=== PATIENT | male | born 1955 | race Caucasian/White ===

== ENCOUNTER 2020-09-16 10:33 | Inpatient (IN) ==
[2020-09-16] MEDS ORDERED: Thiamine (B-1) 200 MG in 0.9 % Sodium Chloride 50 ML IVPB ONE (11:14)
[2020-09-16] MEDS ORDERED: Folic Acid 1 MG in 0.9 % Sodium Chloride 50 ML IVPB ONE (11:14)
[2020-09-16] MEDS ORDERED: 0.9 % Sodium Chloride 1,000 ML IVC ONE (11:14)
[2020-09-16] MEDS ORDERED: methylPREDNISolone 125 MG/2 ML VIAL IVP ONE (11:16)
[2020-09-16] MEDS ORDERED: Ipratropium/Albuterol Neb 3 ML IH ONE (11:16)
[2020-09-16 11:27] LABS: Basophils # 0.1 K/mcL (0.0-0.2); Basophils % 0.6 %; Eosinophils # 0.1 K/mcL (0.0-0.6); Eosinophils % 0.9 %; Hematocrit 33.2 % (37.5-50.1); Hemoglobin 11.4 g/dL (12.9-16.9); Immature Granulocytes % 0.8 % (0-4); Mean Corpuscular HGB Conc 34.3 g/dL (31.6-35.5); Mean Corpuscular Hemoglobin 33.7 pg (28.0-33.3); Mean Corpuscular Volume 98.2 fL (83.0-100.0); Mean Platelet Volume 9.9 fL (9.4-12.4); Monocytes # 0.8 K/mcL (0.0-1.3); Monocytes % 8.4 %; Neutrophils # 7.1 K/mcL (1.6-8.9); Platelet Count 157 K/mcL (140-400); Red Blood Count 3.38 M/mcL (4.19-5.50); Red Cell Distribution Width 12.8 % (11.5-14.5); Segmented Neutrophils % 78.3 %; White Blood Count 9.1 K/mcL (4.3-11.1)
[2020-09-16 11:50] LABS: Alanine Aminotransferase 18 Units/L (7-52); Albumin/Globulin Ratio 0.8 (1.1-2.2); Alkaline Phosphatase 106 Units/L (34-104); Aspartate Amino Transferase 39 Units/L (13-39); BUN/Creatinine Ratio 18 (6-26); Bilirubin,Indirect 1.5 mg/dL (0.0-1.0); Bilirubin,Total 2.5 mg/dL (0.3-1.0); Blood Urea Nitrogen 9 mg/dL (8-23); Calcium 8.1 mg/dL (8.6-10.3); Carbon Dioxide 28 mEq/L (23-29); Chloride 90 mEq/L (98-107); Ethanol < 10 mg/dL (Less than 10); Glucose 117 mg/dL (70-105); Osmolality,Calculated 258 (280-300); Potassium 2.8 mEq/L (3.5-5.1); Sodium 124 mEq/L (136-145); Troponin I 0.14 ng/mL (< 0.04); eGFR For African Americans > 60 (> 60); eGFR For Non-African Americans > 60 (> 60)
[2020-09-16] MEDS ORDERED: Magnesium Sulfate 1 GM/102 ML PIGGYBACK IVPB ONE (11:51)
[2020-09-16] MEDS ORDERED: Potassium Chloride 40 MEQ, Lidocaine 1% 2 ML in 0.9 % Sodium Chloride 500 ML IVPB ONE (11:51)
[2020-09-16 12:10] LABS: Thyroid Stimulating Hormone 2.886 mcIU/mL (0.340-5.600)
[2020-09-16 12:22] LABS: INR 1.3; Prothrombin Time 14.9 Seconds (9.4-12.1)
[2020-09-16 12:25] LABS: Activated Partial Thrombo Time 28.8 Seconds (26.0-36.0)
[2020-09-16] MEDS ORDERED: Isovue-370 500 ML BOTTLE IVP ONE (12:47)
[2020-09-16] MEDS ORDERED: Aspirin 81 MG TAB.CHEW PO STA (12:49)
[2020-09-16] MEDS ORDERED: Ondansetron ODT 4 MG TAB.RAPDIS SL PRN (15:11)
[2020-09-16] MEDS ORDERED: *HR* HYDROcodone/Acet 5/325 mg TABLET PO PRN (15:11)
[2020-09-16] MEDS ORDERED: Naloxone 0.4 MG/ML INJ IVP PRN (15:11)
[2020-09-16] MEDS ORDERED: *HR* LORazepam 2 MG/ML VIAL IVP PRN ×3 (15:25)
[2020-09-16] MEDS: Thiamine (B-1) 100 MG, Folic Acid 1 MG, MVI, adult with vitamin K 10 ML in 0.9 % Sodi... IVPB SCH (16:50)
[2020-09-16 17:37] LABS: INR 1.3; Prothrombin Time 14.8 Seconds (9.4-12.1)
[2020-09-16 17:39] LABS: Activated Partial Thrombo Time 28.7 Seconds (26.0-36.0)
[2020-09-16 17:45] LABS: Phosphorous 2.9 mg/dL (2.7-4.5)
[2020-09-16] MEDS: *HR* OxyCODONE Immed Rel 5 MG TABLET PO PRN (18:05)
[2020-09-16 18:49] LABS: BUN/Creatinine Ratio 17 (6-26); Blood Urea Nitrogen 8 mg/dL (8-23); Calcium 7.5 mg/dL (8.6-10.3); Carbon Dioxide 21 mEq/L (23-29); Chloride 97 mEq/L (98-107); Glucose 139 mg/dL (70-105); Osmolality,Calculated 265 (280-300); Potassium 3.6 mEq/L (3.5-5.1); Sodium 127 mEq/L (136-145); eGFR For African Americans > 60 (> 60); eGFR For Non-African Americans > 60 (> 60)
[2020-09-16] MEDS ORDERED: Sodium Bicarbonate 75 MEQ in 0.45 % Sodium Chloride 1,000 ML IVC SCH (19:15)
[2020-09-16] MEDS ORDERED: Perflutren Lipid Microsphere 1.3 ML in 0.9 % Sodium Chloride 8.7 ML IVP PRN (21:21)
[2020-09-16 22:14] LABS: Amphetamine Screen,Urine Negative ng/mL (Cutoff=1000); Barbiturate Screen,Urine Negative ng/mL (Cutoff=200); Benzodiazepines Screen,Urine Negative ng/mL (Cutoff=200); Cannabinoid Screen,Urine Negative ng/mL (Cutoff = 50); Cocaine Screen,Urine Negative ng/mL (Cutoff= 300); Opiate Screen,Urine Negative ng/mL (Cutoff=300); Phencyclidine Screen,Urine Negative ng/mL (Cutoff=25); Sodium, Urine 24.9 mEq/L
[2020-09-16 22:20] LABS: Bilirubin,Urine Negative (Negative); Blood,Urine Negative (Negative); Clarity,Urine Clear (Clear); Color,Urine Yellow (Yellow); Glucose,Urine (UA) Normal (Normal); Ketones,Urine Negative (Negative); Leukocyte Esterase,Urine Negative (Negative); Nitrite,Urine Negative (Negative); PH,Urine 6.5 pH Units (5.0-8.0); Protein,Urine Negative (Neg-Trace); Specific Gravity,Urine > 1.030 (1.010-1.025); Urobilinogen,Urine >=8.0 mg/dL (Normal)
[2020-09-16] MEDS: Ringers Solution, Lactated 1,000 ML IVC SCH (23:09)
[2020-09-17 01:21] LABS: Hematocrit 25.4 % (37.5-50.1); Mean Corpuscular HGB Conc 34.6 g/dL (31.6-35.5); Mean Corpuscular Hemoglobin 34.1 pg (28.0-33.3); Mean Corpuscular Volume 98.4 fL (83.0-100.0); Mean Platelet Volume 9.9 fL (9.4-12.4); Platelet Count 112 K/mcL (140-400); Red Blood Count 2.58 M/mcL (4.19-5.50); Red Cell Distribution Width 12.9 % (11.5-14.5); White Blood Count 6.7 K/mcL (4.3-11.1)
[2020-09-17 01:22] LABS: Hemoglobin 8.8 g/dL (12.9-16.9)
[2020-09-17 01:30] LABS: INR 1.3; Prothrombin Time 15.2 Seconds (9.4-12.1)
[2020-09-17 01:34] LABS: Alanine Aminotransferase 13 Units/L (7-52); Albumin 2.4 g/dL (3.5-5.7); Albumin/Globulin Ratio 0.7 (1.1-2.2); Alkaline Phosphatase 75 Units/L (34-104); Aspartate Amino Transferase 29 Units/L (13-39); BUN/Creatinine Ratio 22 (6-26); Bilirubin,Total 1.5 mg/dL (0.3-1.0); Blood Urea Nitrogen 9 mg/dL (8-23); Calcium 7.3 mg/dL (8.6-10.3); Carbon Dioxide 20 mEq/L (23-29); Chloride 101 mEq/L (98-107); Globulin 3.3 g/dL (2.4-3.5); Glucose 127 mg/dL (70-105); Osmolality,Calculated 262 (280-300); Potassium 4.2 mEq/L (3.5-5.1); Sodium 126 mEq/L (136-145); Total Protein 5.7 g/dL (6.4-8.9); eGFR For African Americans > 60 (> 60); eGFR For Non-African Americans > 60 (> 60)
[2020-09-17] MEDS: *HR* OxyCODONE Immed Rel 5 MG TABLET PO PRN (03:46)
[2020-09-17] MEDS ORDERED: Calcium Gluconate 1gm/50mL 1 GM/50 ML BAG IVPB PRN (09:19)
[2020-09-17] MEDS ORDERED: Ringers Solution, Lactated 1,000 ML IVC SCH (11:22)
[2020-09-17] MEDS ORDERED: Calcium Gluconate 1gm/50mL 1 GM/50 ML BAG IVPB ONE (11:28)
[2020-09-17] MEDS: 0.9 % Sodium Chloride 1,000 ML IVC SCH (12:12)
[2020-09-17] MEDS ORDERED: *HR* HYDROcodone/Acet 7.5/325 mg TABLET PO PRN (12:44)
[2020-09-17] MEDS: Ringers Solution, Lactated 1,000 ML IVC SCH (13:59)
[2020-09-17] MEDS: Gabapentin 300 MG CAPSULE PO SCH ×2 (17:04→20:02)
[2020-09-17] MEDS: methylPREDNISolone 125 MG/2 ML VIAL IVP SCH (17:04)
[2020-09-17] MEDS: Thiamine (B-1) 100 MG, Folic Acid 1 MG, MVI, adult with vitamin K 10 ML in 0.9 % Sodi... IVPB SCH (18:22)
[2020-09-18 02:02] LABS: Hematocrit 25.4 % (37.5-50.1); Hemoglobin 8.5 g/dL (12.9-16.9); Mean Corpuscular HGB Conc 33.5 g/dL (31.6-35.5); Mean Corpuscular Hemoglobin 34.8 pg (28.0-33.3); Mean Corpuscular Volume 104.1 fL (83.0-100.0); Mean Platelet Volume 10.9 fL (9.4-12.4); Platelet Count 146 K/mcL (140-400); Red Blood Count 2.44 M/mcL (4.19-5.50); Red Cell Distribution Width 13.2 % (11.5-14.5)
[2020-09-18 02:06] LABS: INR 1.2; Prothrombin Time 13.4 Seconds (9.4-12.1)
[2020-09-18 02:08] LABS: Activated Partial Thrombo Time 27.4 Seconds (26.0-36.0)
[2020-09-18 02:17] LABS: BUN/Creatinine Ratio 23 (6-26); Blood Urea Nitrogen 7 mg/dL (8-23); Calcium 7.9 mg/dL (8.6-10.3); Carbon Dioxide 26 mEq/L (23-29); Chloride 100 mEq/L (98-107); Glucose 133 mg/dL (70-105); Osmolality,Calculated 268 (280-300); Phosphorous 3.3 mg/dL (2.7-4.5); Potassium 4.7 mEq/L (3.5-5.1); Sodium 129 mEq/L (136-145); eGFR For African Americans > 60 (> 60); eGFR For Non-African Americans > 60 (> 60)
[2020-09-18] MEDS: methylPREDNISolone 125 MG/2 ML VIAL IVP SCH (05:19)
[2020-09-18] MEDS ORDERED: *HR* Succinylcholine 200 MG/10 ML VIAL IVP ONE (07:48)
[2020-09-18] MEDS ORDERED: Ondansetron 4 MG/2 ML VIAL ONE (07:48)
[2020-09-18] MEDS ORDERED: *HR* Propofol 200 MG/20 ML VIAL IVP ONE (07:48)
[2020-09-18] MEDS ORDERED: *HR* FentaNYL (PF) 100 MCG/2 ML VIAL ONE (07:48)
[2020-09-18] MEDS ORDERED: Lidocaine -MPF 2% 2 ML VIAL ONE (07:48)
[2020-09-18] MEDS ORDERED: Lidocaine HCL 4 ML Topical Solution (Laryng-O-Jet Kit Sterile Pak) TP ONE (07:48)
[2020-09-18] MEDS ORDERED: *HR* Rocuronium Bromide 50 MG/5 ML VIAL ONE (07:48)
[2020-09-18] MEDS ORDERED: *HR* Midazolam HCl 2 MG/2 ML VIAL ONE (07:48)
[2020-09-18] MEDS: Gabapentin 300 MG CAPSULE PO SCH (07:54)
[2020-09-18] MEDS ORDERED: *HR* Vasopressin 20 UNIT/ML VIAL ONE (09:19)
[2020-09-18] MEDS ORDERED: ceFAZolin 2,000 MG in Water for inj. (sterile) 20 ML IVP ONE (09:20)
[2020-09-18] MEDS ORDERED: Tranexamic Acid 1,000 MG/10 ML VIAL ONE (09:38)
[2020-09-18] MEDS ORDERED: Sugammadex Sodium 200 MG/2 ML VIAL IV ONE (10:29)
[2020-09-18] MEDS ORDERED: SODIUM CHLORIDE 0.9% IVPB ONE (11:28)
[2020-09-18] MEDS ORDERED: DESMOPRESSIN ACETATE IVPB ONE (11:28)
[2020-09-18 11:42] LABS: Basophils % 0.1 %; Eosinophils % 0.1 %; Hematocrit 24.3 % (37.5-50.1); Hemoglobin 7.6 g/dL (12.9-16.9); Immature Granulocytes % 1.3 % (0-4); Lymphocytes # 0.5 K/mcL (0.6-4.6); Mean Corpuscular HGB Conc 31.3 g/dL (31.6-35.5); Mean Corpuscular Hemoglobin 34.1 pg (28.0-33.3); Mean Platelet Volume 10.1 fL (9.4-12.4); Monocytes # 0.7 K/mcL (0.0-1.3); Monocytes % 4.6 %; Neutrophils # 13.6 K/mcL (1.6-8.9); Platelet Count 165 K/mcL (140-400); Red Blood Count 2.23 M/mcL (4.19-5.50); Red Cell Distribution Width 13.4 % (11.5-14.5); Segmented Neutrophils % 90.9 %
[2020-09-18] MEDS ORDERED: Naloxone 0.4 MG/ML INJ ONE (11:46)
[2020-09-18 12:04] LABS: ABG Base Excess -2 mEq/L (-2 to 3); ABG Chloride 98 mEq/L (98-107); ABG Glucose 131 mg/dL (60-95); ABG HCO3 30 mEq/L (21-27); ABG Ionized Calcium 1.38 mmol/L (1.15-1.35); ABG Oxygen Saturation 99 % (95-98); ABG PCO2 116 mmHg (35-45); ABG PH 7.02 pH Units (7.32-7.45); ABG PO2 212 mmHg (85-104); ABG TCO2 34 mEq/L (20-26)
[2020-09-18] MEDS ORDERED: Famotidine 20 MG/2 ML VIAL IVP ONE (12:07)
[2020-09-18] MEDS ORDERED: *HR* OxyCODONE Immed Rel 5 MG TABLET PO PRN (12:07)
[2020-09-18] MEDS ORDERED: *HR* HYDROmorphone (PF) 1 MG/ML SYRINGE IVP PRN (12:07)
[2020-09-18] MEDS ORDERED: *HR* HYDROmorphone 2 MG TABLET PO PRN (12:07)
[2020-09-18] MEDS ORDERED: Acetaminophen IV 1,000 MG/100 ML BAG IVPB ONE (12:07)
[2020-09-18] MEDS ORDERED: *HR* Labetalol 20 MG/4 ML SYRINGE IVP PRN (12:07)
[2020-09-18] MEDS ORDERED: Albumin Human 5% 12.5 GM/250 ML IV.SOLN ONE (12:42)
[2020-09-18] MEDS ORDERED: Albumin Human 5% 12.5 GM/250 ML IV.SOLN IVPB ONE (12:49)
[2020-09-18 13:52] LABS: ABG Base Excess -1 mEq/L (-2 to 3); ABG HCO3 27 mEq/L (21-27); ABG Oxygen Saturation 88 % (95-98); ABG PCO2 62 mmHg (35-45); ABG PH 7.25 pH Units (7.32-7.45); ABG PO2 66 mmHg (85-104); ABG TCO2 29 mEq/L (20-26); Blood Gas Pressure Support 8 cm H2O
[2020-09-18 14:42] LABS: ABG Base Excess 1 mEq/L (-2 to 3); ABG HCO3 30 mEq/L (21-27); ABG Oxygen Saturation 92 % (95-98); ABG PCO2 74 mmHg (35-45); ABG PH 7.21 pH Units (7.32-7.45); ABG PO2 80 mmHg (85-104); ABG TCO2 32 mEq/L (20-26)
[2020-09-18] MEDS ORDERED: Ondansetron ODT 4 MG TAB.RAPDIS SL PRN (15:21)
[2020-09-18] MEDS ORDERED: Naloxone 0.4 MG/ML INJ IVP PRN (15:21)
[2020-09-18] MEDS ORDERED: *HR* LORazepam 2 MG/ML VIAL IVP PRN ×3 (15:21)
[2020-09-18] MEDS: 0.9 % Sodium Chloride 1,000 ML IVC SCH (16:09)
[2020-09-18] MEDS: ceFAZolin 1,000 MG in Water for inj. (sterile) 10 ML IVP SCH ×2 (16:10→23:53)
[2020-09-18] MEDS: MethylPREDNISolone 40 MG/ML VIAL IVP SCH (18:34)
[2020-09-18 18:43] LABS: ABG Base Excess 3 mEq/L (-2 to 3); ABG HCO3 31 mEq/L (21-27); ABG Oxygen Saturation 92 % (95-98); ABG PCO2 66 mmHg (35-45); ABG PH 7.27 pH Units (7.32-7.45); ABG PO2 76 mmHg (85-104); ABG TCO2 33 mEq/L (20-26); Blood Gas Modality ST
[2020-09-18] MEDS: Gabapentin 100 MG CAPSULE PO SCH (21:17)
[2020-09-18 21:51] LABS: Hematocrit 25.2 % (37.5-50.1); Hemoglobin 7.9 g/dL (12.9-16.9)
[2020-09-18] MEDS: *HR* HYDROcodone/Acet 5/325 mg TABLET PO PRN (22:14)
[2020-09-19 05:42] LABS: Red Cell Distribution Width 14.1 % (11.5-14.5)
[2020-09-19 05:44] LABS: Hematocrit 26.2 % (37.5-50.1); Hemoglobin 8.2 g/dL (12.9-16.9); Immature Platelets 5.7 % (1.1-6.1); Mean Corpuscular HGB Conc 31.3 g/dL (31.6-35.5); Mean Corpuscular Hemoglobin 33.9 pg (28.0-33.3); Mean Corpuscular Volume 108.3 fL (83.0-100.0); Mean Platelet Volume 10.6 fL (9.4-12.4); Red Blood Count 2.42 M/mcL (4.19-5.50); White Blood Count 9.9 K/mcL (4.3-11.1)
[2020-09-19 06:03] LABS: BUN/Creatinine Ratio 27 (6-26); Blood Urea Nitrogen 12 mg/dL (8-23); Calcium 7.7 mg/dL (8.6-10.3); Carbon Dioxide 31 mEq/L (23-29); Chloride 103 mEq/L (98-107); Glucose 116 mg/dL (70-105); Magnesium 2.1 mg/dL (1.6-2.6); Osmolality,Calculated 279 (280-300); Phosphorous 3.1 mg/dL (2.7-4.5); Potassium 4.9 mEq/L (3.5-5.1); Sodium 134 mEq/L (136-145); Transferrin 147 mg/dL (203-362); eGFR For African Americans > 60 (> 60); eGFR For Non-African Americans > 60 (> 60)
[2020-09-19 06:06] LABS: % Iron Saturation 21 % (20-55); Iron 44 mcg/dL (65-175)
[2020-09-19] MEDS: MethylPREDNISolone 40 MG/ML VIAL IVP SCH ×2 (06:40→18:00)
[2020-09-19] MEDS: Gabapentin 100 MG CAPSULE PO SCH ×3 (08:02→20:45)
[2020-09-19] MEDS: 0.9 % Sodium Chloride 1,000 ML IVC SCH (08:02)
[2020-09-19] MEDS: ceFAZolin 1,000 MG in Water for inj. (sterile) 10 ML IVP SCH ×2 (08:02→15:46)
[2020-09-19] MEDS: *HR* HYDROcodone/Acet 5/325 mg TABLET PO PRN ×2 (12:14→18:01)
[2020-09-19 12:16] LABS: ABG Base Excess 5 mEq/L (-2 to 3); ABG HCO3 32 mEq/L (21-27); ABG Oxygen Saturation 92 % (95-98); ABG PCO2 60 mmHg (35-45); ABG PH 7.33 pH Units (7.32-7.45); ABG PO2 70 mmHg (85-104); ABG TCO2 34 mEq/L (20-26); Blood Gas Pressure Support 16 cm H2O
[2020-09-20] MEDS: ceFAZolin 1,000 MG in Water for inj. (sterile) 10 ML IVP SCH (01:57)
[2020-09-20] MEDS: *HR* HYDROcodone/Acet 5/325 mg TABLET PO PRN ×5 (01:57→23:38)
[2020-09-20 02:25] LABS: Hematocrit 24.2 % (37.5-50.1); Hemoglobin 7.8 g/dL (12.9-16.9); Mean Corpuscular HGB Conc 32.2 g/dL (31.6-35.5); Mean Corpuscular Hemoglobin 34.1 pg (28.0-33.3); Mean Corpuscular Volume 105.7 fL (83.0-100.0); Mean Platelet Volume 10.2 fL (9.4-12.4); Platelet Count 144 K/mcL (140-400); Red Blood Count 2.29 M/mcL (4.19-5.50); Red Cell Distribution Width 13.6 % (11.5-14.5); White Blood Count 6.2 K/mcL (4.3-11.1)
[2020-09-20 02:43] LABS: BUN/Creatinine Ratio 33 (6-26); Blood Urea Nitrogen 14 mg/dL (8-23); Calcium 8.2 mg/dL (8.6-10.3); Carbon Dioxide 32 mEq/L (23-29); Chloride 103 mEq/L (98-107); Glucose 108 mg/dL (70-105); Magnesium 2.3 mg/dL (1.6-2.6); Osmolality,Calculated 285 (280-300); Phosphorous 1.4 mg/dL (2.7-4.5); Sodium 137 mEq/L (136-145); eGFR For African Americans > 60 (> 60); eGFR For Non-African Americans > 60 (> 60)
[2020-09-20] MEDS: MethylPREDNISolone 40 MG/ML VIAL IVP SCH ×2 (06:13→18:19)
[2020-09-20] MEDS: Gabapentin 100 MG CAPSULE PO SCH ×3 (07:52→21:43)
[2020-09-20] MEDS: polyethylene glycoL 3350 17 GM POWD.PACK PO SCH (13:02)
[2020-09-20] MEDS: Gabapentin 300 MG CAPSULE PO SCH (16:21)
[2020-09-20] MEDS: 0.9 % Sodium Chloride 1,000 ML IVC SCH (16:21)
[2020-09-21 02:29] LABS: Hematocrit 22.8 % (37.5-50.1); Hemoglobin 7.2 g/dL (12.9-16.9); Mean Corpuscular HGB Conc 31.6 g/dL (31.6-35.5); Mean Corpuscular Hemoglobin 33.2 pg (28.0-33.3); Mean Corpuscular Volume 105.1 fL (83.0-100.0); Mean Platelet Volume 10.1 fL (9.4-12.4); Platelet Count 138 K/mcL (140-400); Red Blood Count 2.17 M/mcL (4.19-5.50); Red Cell Distribution Width 13.2 % (11.5-14.5); White Blood Count 4.2 K/mcL (4.3-11.1)
[2020-09-21 02:57] LABS: BUN/Creatinine Ratio 38 (6-26); Blood Urea Nitrogen 12 mg/dL (8-23); Calcium 7.9 mg/dL (8.6-10.3); Carbon Dioxide 33 mEq/L (23-29); Chloride 102 mEq/L (98-107); Glucose 128 mg/dL (70-105); Magnesium 2.2 mg/dL (1.6-2.6); Osmolality,Calculated 285 (280-300); Phosphorous 1.7 mg/dL (2.7-4.5); Potassium 4.2 mEq/L (3.5-5.1); Sodium 137 mEq/L (136-145); eGFR For African Americans > 60 (> 60); eGFR For Non-African Americans > 60 (> 60)
[2020-09-21] MEDS: MethylPREDNISolone 40 MG/ML VIAL IVP SCH ×2 (05:39→17:19)
[2020-09-21] MEDS: *HR* HYDROcodone/Acet 5/325 mg TABLET PO PRN ×4 (05:44→23:25)
[2020-09-21] MEDS: Gabapentin 100 MG CAPSULE PO SCH ×4 (07:15→21:23)
[2020-09-21] MEDS: polyethylene glycoL 3350 17 GM POWD.PACK PO SCH (08:54)
[2020-09-22 05:16] LABS: Hematocrit 23.9 % (37.5-50.1); Hemoglobin 7.8 g/dL (12.9-16.9); Mean Corpuscular HGB Conc 32.6 g/dL (31.6-35.5); Mean Corpuscular Hemoglobin 33.2 pg (28.0-33.3); Mean Corpuscular Volume 101.7 fL (83.0-100.0); Platelet Count 140 K/mcL (140-400); Red Blood Count 2.35 M/mcL (4.19-5.50); Red Cell Distribution Width 13.2 % (11.5-14.5); White Blood Count 4.5 K/mcL (4.3-11.1)
[2020-09-22 05:36] LABS: % Iron Saturation 24 % (20-55); BUN/Creatinine Ratio 31 (6-26); Blood Urea Nitrogen 11 mg/dL (8-23); Calcium 7.6 mg/dL (8.6-10.3); Carbon Dioxide 30 mEq/L (23-29); Chloride 101 mEq/L (98-107); Glucose 107 mg/dL (70-105); Iron 51 mcg/dL (65-175); Magnesium 1.9 mg/dL (1.6-2.6); Osmolality,Calculated 276 (280-300); Potassium 3.9 mEq/L (3.5-5.1); Sodium 133 mEq/L (136-145); Transferrin 151 mg/dL (203-362); eGFR For African Americans > 60 (> 60); eGFR For Non-African Americans > 60 (> 60)
[2020-09-22] MEDS: MethylPREDNISolone 40 MG/ML VIAL IVP SCH ×2 (05:42→17:31)
[2020-09-22] MEDS: *HR* HYDROcodone/Acet 5/325 mg TABLET PO PRN (08:31)
[2020-09-22] MEDS: Gabapentin 100 MG CAPSULE PO SCH ×3 (08:31→20:17)
[2020-09-22] MEDS: polyethylene glycoL 3350 17 GM POWD.PACK PO SCH (08:32)
[2020-09-23 03:02] LABS: Hematocrit 26.1 % (37.5-50.1); Hemoglobin 8.6 g/dL (12.9-16.9); Mean Corpuscular Hemoglobin 33.9 pg (28.0-33.3); Mean Corpuscular Volume 102.8 fL (83.0-100.0); Mean Platelet Volume 9.9 fL (9.4-12.4); Platelet Count 139 K/mcL (140-400); Red Blood Count 2.54 M/mcL (4.19-5.50); Red Cell Distribution Width 13.6 % (11.5-14.5)
[2020-09-23 03:03] LABS: White Blood Count 6.8 K/mcL (4.3-11.1)
[2020-09-23 03:27] LABS: % Iron Saturation 13 % (20-55); BUN/Creatinine Ratio 26 (6-26); Blood Urea Nitrogen 11 mg/dL (8-23); Carbon Dioxide 28 mEq/L (23-29); Chloride 101 mEq/L (98-107); Glucose 121 mg/dL (70-105); Iron 31 mcg/dL (65-175); Magnesium 1.9 mg/dL (1.6-2.6); Osmolality,Calculated 279 (280-300); Phosphorous 2.9 mg/dL (2.7-4.5); Potassium 3.7 mEq/L (3.5-5.1); Sodium 134 mEq/L (136-145); Transferrin 165 mg/dL (203-362); eGFR For African Americans > 60 (> 60); eGFR For Non-African Americans > 60 (> 60)
[2020-09-23] MEDS: MethylPREDNISolone 40 MG/ML VIAL IVP SCH (06:39)
[2020-09-23] MEDS: polyethylene glycoL 3350 17 GM POWD.PACK PO SCH (07:21)
[2020-09-23] MEDS: Gabapentin 100 MG CAPSULE PO SCH ×3 (07:21→20:08)
[2020-09-23] MEDS: predniSONE 20 MG TABLET PO SCH (15:54)
[2020-09-24 06:24] LABS: Hematocrit 24.9 % (37.5-50.1); Hemoglobin 8.1 g/dL (12.9-16.9); Mean Corpuscular HGB Conc 32.5 g/dL (31.6-35.5); Mean Corpuscular Hemoglobin 33.5 pg (28.0-33.3); Mean Corpuscular Volume 102.9 fL (83.0-100.0); Mean Platelet Volume 10.6 fL (9.4-12.4); Platelet Count 121 K/mcL (140-400); Red Blood Count 2.42 M/mcL (4.19-5.50); White Blood Count 5.9 K/mcL (4.3-11.1)
[2020-09-24 06:49] LABS: BUN/Creatinine Ratio 36 (6-26); Blood Urea Nitrogen 13 mg/dL (8-23); Carbon Dioxide 28 mEq/L (23-29); Chloride 108 mEq/L (98-107); Glucose 94 mg/dL (70-105); Osmolality,Calculated 290 (280-300); Potassium 4.1 mEq/L (3.5-5.1); Sodium 140 mEq/L (136-145); eGFR For African Americans > 60 (> 60); eGFR For Non-African Americans > 60 (> 60)
[2020-09-24] MEDS: Gabapentin 100 MG CAPSULE PO SCH (07:37)
[2020-09-24] MEDS: predniSONE 20 MG TABLET PO SCH (07:37)
[2020-09-24] MEDS: polyethylene glycoL 3350 17 GM POWD.PACK PO SCH (07:38)
[2020-09-24 08:00] VITALS: BP 133/74; PULSE 89; TEMP 97.8; O2SAT 92
== END 2020-09-24 11:20 | disposition home or self-care (01) | DRG 166 ==
LOC: EMEROOARM 10:33 → 2ANU 10:33 → SUATTDRO 13:32 → 2ANU 14:12 → SUATTDRO 09-17 14:03 → 2NNU 09-18 10:35
PROVIDERS: ADMIT Pharmacist; ATTEND Internal Medicine

== ENCOUNTER 2020-12-28 09:33 | Inpatient (IN) ==
[2020-12-28] MEDS ORDERED: 0.9 % Sodium Chloride 1,000 ML IV ONE ×3 (09:54→13:52)
[2020-12-28 10:22] LABS: Basophils % 0.3 %; Eosinophils # 0.1 K/mcL (0.0-0.6); Eosinophils % 0.7 %; Hemoglobin 11.2 g/dL (12.9-16.9); Immature Granulocytes % 0.7 % (0-4); Lymphocytes # 1.3 K/mcL (0.6-4.6); Mean Corpuscular HGB Conc 36.1 g/dL (31.6-35.5); Mean Corpuscular Hemoglobin 30.9 pg (28.0-33.3); Mean Corpuscular Volume 85.6 fL (83.0-100.0); Monocytes % 11.2 %; Neutrophils # 6.7 K/mcL (1.6-8.9); Platelet Count 139 K/mcL (140-400); Red Blood Count 3.62 M/mcL (4.19-5.50); Red Cell Distribution Width 17.6 % (11.5-14.5); Segmented Neutrophils % 73.1 %; White Blood Count 9.2 K/mcL (4.3-11.1)
[2020-12-28 10:30] LABS: INR 1.4
[2020-12-28 10:32] LABS: Activated Partial Thrombo Time 37.5 Seconds (26.0-36.0)
[2020-12-28 10:39] LABS: Alanine Aminotransferase 29 Units/L (7-52); Albumin 2.5 g/dL (3.5-5.7); Albumin/Globulin Ratio 0.6 (1.1-2.2); Alkaline Phosphatase 194 Units/L (34-104); Aspartate Amino Transferase 111 Units/L (13-39); BUN/Creatinine Ratio 11 (6-26); Bilirubin,Total 10.3 mg/dL (0.3-1.0); Blood Urea Nitrogen 6 mg/dL (8-23); Calcium 7.8 mg/dL (8.6-10.3); Carbon Dioxide 28 mEq/L (23-29); Chloride 89 mEq/L (98-107); Globulin 4.2 g/dL (2.4-3.5); Glucose 85 mg/dL (70-105); Osmolality,Calculated 263 (280-300); Potassium 3.2 mEq/L (3.5-5.1); Sodium 128 mEq/L (136-145); Total Protein 6.7 g/dL (6.4-8.9); eGFR For African Americans > 60 (> 60); eGFR For Non-African Americans > 60 (> 60)
[2020-12-28] MEDS ORDERED: Isovue-370 500 ML BOTTLE IVP ONE (10:39)
[2020-12-28 11:56] LABS: Bilirubin,Direct 5.8 mg/dL (0.0-0.2)
[2020-12-28 14:41] LABS: Hepatitis B Surface Antigen Nonreactive (Nonreactive)
[2020-12-28 15:10] LABS: Hepatitis C Virus Antibody Nonreactive (Nonreactive)
[2020-12-28 15:11] LABS: Hepatitis B Core IgM Nonreactive (Nonreactive)
[2020-12-28 15:13] LABS: Hepatitis A Antibody IgM Nonreactive (Nonreactive)
[2020-12-28 15:42] LABS: Influenza A PCR Negative (Negative); Influenza B PCR Negative (Negative); Resp. Syncytial Virus PCR Negative (Negative); SARS-CoV-2 by PCR (In House) Negative (Negative)
[2020-12-28] MEDS ORDERED: Naloxone 0.4 MG/ML INJ IVP PRN (15:45)
[2020-12-28] MEDS ORDERED: Ondansetron 4 MG/2 ML VIAL IVP PRN (15:45)
[2020-12-28] MEDS ORDERED: *HR* LORazepam 2 MG/ML VIAL IVP PRN ×3 (15:45)
[2020-12-28] MEDS ORDERED: Thiamine (B-1) 200 MG in 0.9 % Sodium Chloride 50 ML IVPB STA (15:45)
[2020-12-28 20:00] LABS: Hematocrit 28.4 % (37.5-50.1); Hemoglobin 10.2 g/dL (12.9-16.9)
[2020-12-28 20:19] LABS: Magnesium 1.7 mg/dL (1.6-2.6); Phosphorous 2.5 mg/dL (2.7-4.5)
[2020-12-28 20:21] LABS: BUN/Creatinine Ratio 13 (6-26); Blood Urea Nitrogen 6 mg/dL (8-23); Calcium 7.2 mg/dL (8.6-10.3); Carbon Dioxide 25 mEq/L (23-29); Chloride 97 mEq/L (98-107); Glucose 66 mg/dL (70-105); Osmolality,Calculated 268 (280-300); Potassium 3.6 mEq/L (3.5-5.1); Sodium 131 mEq/L (136-145); eGFR For African Americans > 60 (> 60); eGFR For Non-African Americans > 60 (> 60)
[2020-12-29] MEDS ORDERED: Pantoprazole 40 MG VIAL IVP ONE (02:47)
[2020-12-29] MEDS ORDERED: methylPREDNISolone 125 MG/2 ML VIAL IVP ONE (04:43)
[2020-12-29] MEDS ORDERED: D5% in Water 1,000 ML IVC PRN (04:47)
[2020-12-29] MEDS ORDERED: *HR* Dextrose 50 % in Water (Syg) 50 ML SYRINGE IVP PRN (04:47)
[2020-12-29] MEDS ORDERED: Dextrose Gel 15 GM/37.5 ML TUBE PO PRN ×2 (04:47)
[2020-12-29] MEDS ORDERED: Ipratropium/Albuterol Neb 3 ML ONE (04:49)
[2020-12-29] MEDS: Ipratropium/Albuterol Neb 3 ML IH SCH ×6 (04:54→23:38)
[2020-12-29 05:45] LABS: Basophils % 0.2 %; Hematocrit 27.6 % (37.5-50.1); Hemoglobin 9.8 g/dL (12.9-16.9); Immature Granulocytes % 0.5 % (0-4); Lymphocytes # 1.1 K/mcL (0.6-4.6); Lymphocytes % 12.2 %; Mean Corpuscular HGB Conc 35.5 g/dL (31.6-35.5); Mean Corpuscular Hemoglobin 30.5 pg (28.0-33.3); Mean Platelet Volume 10.7 fL (9.4-12.4); Monocytes # 1.1 K/mcL (0.0-1.3); Monocytes % 12.7 %; Neutrophils # 6.4 K/mcL (1.6-8.9); Platelet Count 106 K/mcL (140-400); Red Blood Count 3.21 M/mcL (4.19-5.50); Red Cell Distribution Width 18.6 % (11.5-14.5); Segmented Neutrophils % 74.4 %; White Blood Count 8.6 K/mcL (4.3-11.1)
[2020-12-29 05:52] LABS: INR 1.6; Prothrombin Time 18.3 Seconds (9.4-12.1)
[2020-12-29 06:06] LABS: Alanine Aminotransferase 23 Units/L (7-52); Albumin 2.2 g/dL (3.5-5.7); Albumin/Globulin Ratio 0.6 (1.1-2.2); Alkaline Phosphatase 158 Units/L (34-104); Aspartate Amino Transferase 91 Units/L (13-39); BUN/Creatinine Ratio 17 (6-26); Bilirubin,Total 10.9 mg/dL (0.3-1.0); Blood Urea Nitrogen 9 mg/dL (8-23); Calcium 7.5 mg/dL (8.6-10.3); Carbon Dioxide 26 mEq/L (23-29); Chloride 98 mEq/L (98-107); Globulin 3.6 g/dL (2.4-3.5); Glucose 98 mg/dL (70-105); Osmolality,Calculated 269 (280-300); Potassium 3.5 mEq/L (3.5-5.1); Sodium 130 mEq/L (136-145); Total Protein 5.8 g/dL (6.4-8.9); eGFR For African Americans > 60 (> 60); eGFR For Non-African Americans > 60 (> 60)
[2020-12-29] MEDS: Budesonide/Formoterol 160/4.5 1 PUFF INH IH SCH ×2 (07:46→19:55)
[2020-12-29] MEDS: Thiamine (B-1) 100 MG TABLET PO SCH (09:25)
[2020-12-29] MEDS: Vitamin B Complex/Vit C/Vit E 1 EACH TABLET PO SCH (09:25)
[2020-12-29] MEDS: Folic Acid 1 MG TABLET PO SCH (09:25)
[2020-12-29] MEDS: MetroNIDAZOLE 500 MG/100 ML 500 MG/100 ML BAG IVPB SCH ×4 (09:26→23:15)
[2020-12-29] MEDS ORDERED: *HR* Phytonadione 5 MG TABLET PO ONE (10:24)
[2020-12-29] MEDS: Albumin 25% 25gram/100mL 25 GM/100 ML IV.SOLN IVC SCH ×2 (10:52→10:55)
[2020-12-29] MEDS: PrednisoLONE Oral Soln 15 MG/5 ML UDC PO SCH (12:51)
[2020-12-29] MEDS ORDERED: Preparation H Ointment 57 GM TUBE RC PRN (16:34)
[2020-12-29] MEDS: Nicotine 21 MG PATCH.TD24 TD SCH (17:45)
[2020-12-29] MEDS: Pantoprazole 40 MG VIAL IVP SCH (17:46)
[2020-12-30 03:13] LABS: Hematocrit 25.2 % (37.5-50.1); Mean Corpuscular HGB Conc 35.7 g/dL (31.6-35.5); Mean Corpuscular Hemoglobin 31.4 pg (28.0-33.3); Mean Corpuscular Volume 87.8 fL (83.0-100.0); Mean Platelet Volume 10.6 fL (9.4-12.4); Platelet Count 102 K/mcL (140-400); Red Blood Count 2.87 M/mcL (4.19-5.50); Red Cell Distribution Width 18.8 % (11.5-14.5); White Blood Count 12.7 K/mcL (4.3-11.1)
[2020-12-30 03:23] LABS: INR 1.6
[2020-12-30 03:36] LABS: Alanine Aminotransferase 18 Units/L (7-52); Albumin 2.7 g/dL (3.5-5.7); Albumin/Globulin Ratio 0.8 (1.1-2.2); Alkaline Phosphatase 113 Units/L (34-104); Amylase 20 Units/L (29-103); Aspartate Amino Transferase 72 Units/L (13-39); BUN/Creatinine Ratio 18 (6-26); Bilirubin,Total 7.9 mg/dL (0.3-1.0); Blood Urea Nitrogen 9 mg/dL (8-23); Calcium 7.8 mg/dL (8.6-10.3); Carbon Dioxide 22 mEq/L (23-29); Chloride 96 mEq/L (98-107); Globulin 3.2 g/dL (2.4-3.5); Glucose 133 mg/dL (70-105); Osmolality,Calculated 265 (280-300); Potassium 2.8 mEq/L (3.5-5.1); Sodium 127 mEq/L (136-145); Total Protein 5.9 g/dL (6.4-8.9); eGFR For African Americans > 60 (> 60); eGFR For Non-African Americans > 60 (> 60)
[2020-12-30] MEDS: Ipratropium/Albuterol Neb 3 ML IH SCH ×6 (04:12→22:41)
[2020-12-30] MEDS: Pantoprazole 40 MG VIAL IVP SCH ×2 (05:34→17:02)
[2020-12-30] MEDS: Budesonide/Formoterol 160/4.5 1 PUFF INH IH SCH ×2 (07:48→20:07)
[2020-12-30] MEDS: Folic Acid 1 MG TABLET PO SCH (09:42)
[2020-12-30] MEDS: MetroNIDAZOLE 500 MG/100 ML 500 MG/100 ML BAG IVPB SCH ×2 (09:42→15:09)
[2020-12-30] MEDS: Vitamin B Complex/Vit C/Vit E 1 EACH TABLET PO SCH (09:42)
[2020-12-30] MEDS: Thiamine (B-1) 100 MG TABLET PO SCH (09:42)
[2020-12-30] MEDS: Nicotine 21 MG PATCH.TD24 TD SCH (09:43)
[2020-12-30] MEDS: PrednisoLONE Oral Soln 15 MG/5 ML UDC PO SCH (09:43)
[2020-12-30] MEDS: Lactulose Oral Soln 20 GM/30 ML UDC PO SCH ×2 (15:10→21:20)
[2020-12-30] MEDS: Potassium Chloride Elixir 20 MEQ/15 ML UDC PO SCH (21:32)
[2020-12-31] MEDS: MetroNIDAZOLE 500 MG/100 ML 500 MG/100 ML BAG IVPB SCH ×3 (00:54→16:55)
[2020-12-31] MEDS: Ipratropium/Albuterol Neb 3 ML IH SCH ×5 (03:33→19:49)
[2020-12-31] MEDS: Pantoprazole 40 MG VIAL IVP SCH ×2 (05:30→16:56)
[2020-12-31 06:37] LABS: Hematocrit 24.5 % (37.5-50.1); Hemoglobin 8.7 g/dL (12.9-16.9); Mean Corpuscular HGB Conc 35.5 g/dL (31.6-35.5); Mean Corpuscular Hemoglobin 30.7 pg (28.0-33.3); Mean Corpuscular Volume 86.6 fL (83.0-100.0); Mean Platelet Volume 10.7 fL (9.4-12.4); Platelet Count 108 K/mcL (140-400); Red Blood Count 2.83 M/mcL (4.19-5.50); Red Cell Distribution Width 19.4 % (11.5-14.5)
[2020-12-31 06:54] LABS: BUN/Creatinine Ratio 19 (6-26); Blood Urea Nitrogen 9 mg/dL (8-23); Calcium 8.1 mg/dL (8.6-10.3); Carbon Dioxide 27 mEq/L (23-29); Chloride 100 mEq/L (98-107); Glucose 93 mg/dL (70-105); Osmolality,Calculated 268 (280-300); Potassium 3.6 mEq/L (3.5-5.1); Sodium 130 mEq/L (136-145); eGFR For African Americans > 60 (> 60); eGFR For Non-African Americans > 60 (> 60)
[2020-12-31] MEDS: Budesonide/Formoterol 160/4.5 1 PUFF INH IH SCH ×2 (07:34→19:50)
[2020-12-31] MEDS: Folic Acid 1 MG TABLET PO SCH (08:38)
[2020-12-31] MEDS: Thiamine (B-1) 100 MG TABLET PO SCH (08:38)
[2020-12-31] MEDS: Vitamin B Complex/Vit C/Vit E 1 EACH TABLET PO SCH (08:39)
[2020-12-31] MEDS: Nicotine 21 MG PATCH.TD24 TD SCH (08:39)
[2020-12-31] MEDS: Potassium Chloride Elixir 20 MEQ/15 ML UDC PO SCH (08:39)
[2020-12-31] MEDS: Lactulose Oral Soln 20 GM/30 ML UDC PO SCH ×2 (08:39→22:15)
[2020-12-31 12:45] LABS: Alanine Aminotransferase 22 Units/L (7-52); Albumin 2.6 g/dL (3.5-5.7); Albumin/Globulin Ratio 0.8 (1.1-2.2); Alkaline Phosphatase 111 Units/L (34-104); Aspartate Amino Transferase 76 Units/L (13-39); Bilirubin,Indirect 3.7 mg/dL (0.0-1.0); Bilirubin,Total 8.7 mg/dL (0.3-1.0); Globulin 3.1 g/dL (2.4-3.5); Total Protein 5.7 g/dL (6.4-8.9)
[2021-01-01] MEDS: Ipratropium/Albuterol Neb 3 ML IH SCH ×7 (00:29→23:35)
[2021-01-01] MEDS: MetroNIDAZOLE 500 MG/100 ML 500 MG/100 ML BAG IVPB SCH ×2 (00:34→07:45)
[2021-01-01 03:37] LABS: Hematocrit 24.1 % (37.5-50.1); Hemoglobin 8.9 g/dL (12.9-16.9); Immature Platelets 7.9 % (1.1-6.1); Mean Corpuscular HGB Conc 36.9 g/dL (31.6-35.5); Mean Corpuscular Volume 86.7 fL (83.0-100.0); Mean Platelet Volume 11.1 fL (9.4-12.4); Red Blood Count 2.78 M/mcL (4.19-5.50); Red Cell Distribution Width 20.1 % (11.5-14.5); White Blood Count 8.2 K/mcL (4.3-11.1)
[2021-01-01 04:22] LABS: Alanine Aminotransferase 23 Units/L (7-52); Albumin 2.4 g/dL (3.5-5.7); Albumin/Globulin Ratio 0.9 (1.1-2.2); Alkaline Phosphatase 107 Units/L (34-104); Aspartate Amino Transferase 86 Units/L (13-39); BUN/Creatinine Ratio 15 (6-26); Bilirubin,Total 9.1 mg/dL (0.3-1.0); Blood Urea Nitrogen 8 mg/dL (8-23); Calcium 7.9 mg/dL (8.6-10.3); Carbon Dioxide 25 mEq/L (23-29); Chloride 101 mEq/L (98-107); Globulin 2.8 g/dL (2.4-3.5); Glucose 81 mg/dL (70-105); Osmolality,Calculated 267 (280-300); Potassium 3.8 mEq/L (3.5-5.1); Sodium 130 mEq/L (136-145); Total Protein 5.2 g/dL (6.4-8.9); eGFR For African Americans > 60 (> 60); eGFR For Non-African Americans > 60 (> 60)
[2021-01-01 04:43] LABS: Phosphorous < 1.0 mg/dL (2.7-4.5)
[2021-01-01] MEDS ORDERED: Potassium Phosphate 44 MEQ in 0.9 % Sodium Chloride 250 ML IVPB ONE (05:00)
[2021-01-01] MEDS: Pantoprazole 40 MG VIAL IVP SCH (05:37)
[2021-01-01] MEDS: Budesonide/Formoterol 160/4.5 1 PUFF INH IH SCH ×2 (07:24→19:25)
[2021-01-01] MEDS: Vitamin B Complex/Vit C/Vit E 1 EACH TABLET PO SCH (07:45)
[2021-01-01] MEDS: Lactulose Oral Soln 20 GM/30 ML UDC PO SCH (07:45)
[2021-01-01] MEDS: Thiamine (B-1) 100 MG TABLET PO SCH (07:46)
[2021-01-01] MEDS: Folic Acid 1 MG TABLET PO SCH (07:46)
[2021-01-01] MEDS: Nicotine 21 MG PATCH.TD24 TD SCH (07:46)
[2021-01-02] MEDS: Ipratropium/Albuterol Neb 3 ML IH SCH ×5 (03:54→20:58)
[2021-01-02 07:14] LABS: BUN/Creatinine Ratio 14 (6-26); Blood Urea Nitrogen 8 mg/dL (8-23); Calcium 7.5 mg/dL (8.6-10.3); Carbon Dioxide 24 mEq/L (23-29); Chloride 99 mEq/L (98-107); Glucose 93 mg/dL (70-105); Magnesium 1.8 mg/dL (1.6-2.6); Osmolality,Calculated 266 (280-300); Phosphorous 2.5 mg/dL (2.7-4.5); Potassium 3.7 mEq/L (3.5-5.1); Sodium 129 mEq/L (136-145); eGFR For African Americans > 60 (> 60); eGFR For Non-African Americans > 60 (> 60)
[2021-01-02] MEDS: Budesonide/Formoterol 160/4.5 1 PUFF INH IH SCH ×2 (07:51→20:58)
[2021-01-02 08:26] LABS: Eosinophils % 1.2 %; Hemoglobin 8.9 g/dL (12.9-16.9); Red Cell Distribution Width 20.9 % (11.5-14.5)
[2021-01-02 08:28] LABS: Basophils % 0.4 %; Eosinophils # 0.1 K/mcL (0.0-0.6); Hematocrit 24.9 % (37.5-50.1); Immature Granulocytes % 4.5 % (0-4); Immature Platelets 6.2 % (1.1-6.1); Lymphocytes # 1.7 K/mcL (0.6-4.6); Lymphocytes % 15.2 %; Mean Corpuscular HGB Conc 35.7 g/dL (31.6-35.5); Mean Corpuscular Hemoglobin 31.3 pg (28.0-33.3); Mean Corpuscular Volume 87.7 fL (83.0-100.0); Mean Platelet Volume 10.3 fL (9.4-12.4); Monocytes # 1.6 K/mcL (0.0-1.3); Monocytes % 14.6 %; Nucleated Red Blood Cells 0.4 /100 WBC (0); Red Blood Count 2.84 M/mcL (4.19-5.50); Segmented Neutrophils % 64.1 %
[2021-01-02 08:45] LABS: Albumin 2.4 g/dL (3.5-5.7); Albumin/Globulin Ratio 0.8 (1.1-2.2); Bilirubin,Direct 6.1 mg/dL (0.0-0.2); Bilirubin,Indirect 4.5 mg/dL (0.0-1.0); Bilirubin,Total 10.6 mg/dL (0.3-1.0); Total Protein 5.4 g/dL (6.4-8.9)
[2021-01-02 08:48] LABS: Neutrophils # 7.1 K/mcL (1.6-8.9); Platelet Count 98 K/mcL (140-400)
[2021-01-02] MEDS: Lactulose Oral Soln 20 GM/30 ML UDC PO SCH (10:21)
[2021-01-02] MEDS: Vitamin B Complex/Vit C/Vit E 1 EACH TABLET PO SCH (10:21)
[2021-01-02] MEDS: Folic Acid 1 MG TABLET PO SCH (10:21)
[2021-01-02] MEDS: Thiamine (B-1) 100 MG TABLET PO SCH (10:21)
[2021-01-02] MEDS: Nicotine 21 MG PATCH.TD24 TD SCH (10:21)
[2021-01-02 12:26] LABS: INR 1.7; Prothrombin Time 19.2 Seconds (9.4-12.1)
[2021-01-03] MEDS: Ipratropium/Albuterol Neb 3 ML IH SCH ×6 (00:08→20:24)
[2021-01-03 00:52] LABS: Basophils # 0.1 K/mcL (0.0-0.2); Basophils % 0.4 %; Eosinophils # 0.1 K/mcL (0.0-0.6); Eosinophils % 1.1 %; Hematocrit 24.5 % (37.5-50.1); Hemoglobin 8.6 g/dL (12.9-16.9); Immature Granulocytes % 4.3 % (0-4); Immature Platelets 6.1 % (1.1-6.1); Lymphocytes # 1.5 K/mcL (0.6-4.6); Lymphocytes % 13.4 %; Mean Corpuscular HGB Conc 35.1 g/dL (31.6-35.5); Mean Corpuscular Hemoglobin 30.8 pg (28.0-33.3); Mean Corpuscular Volume 87.8 fL (83.0-100.0); Monocytes # 1.6 K/mcL (0.0-1.3); Monocytes % 13.5 %; Neutrophils # 7.8 K/mcL (1.6-8.9); Nucleated Red Blood Cells 0.3 /100 WBC (0); Platelet Count 103 K/mcL (140-400); Red Blood Count 2.79 M/mcL (4.19-5.50); Red Cell Distribution Width 21.2 % (11.5-14.5); Segmented Neutrophils % 67.3 %; White Blood Count 11.5 K/mcL (4.3-11.1)
[2021-01-03 01:01] LABS: Alanine Aminotransferase 25 Units/L (7-52); Albumin 2.2 g/dL (3.5-5.7); Albumin/Globulin Ratio 0.7 (1.1-2.2); Alkaline Phosphatase 99 Units/L (34-104); Aspartate Amino Transferase 79 Units/L (13-39); BUN/Creatinine Ratio 13 (6-26); Bilirubin,Direct 6.2 mg/dL (0.0-0.2); Bilirubin,Total 10.2 mg/dL (0.3-1.0); Blood Urea Nitrogen 7 mg/dL (8-23); Calcium 7.6 mg/dL (8.6-10.3); Carbon Dioxide 24 mEq/L (23-29); Chloride 101 mEq/L (98-107); Glucose 113 mg/dL (70-105); Osmolality,Calculated 269 (280-300); Potassium 3.4 mEq/L (3.5-5.1); Sodium 130 mEq/L (136-145); Total Protein 5.2 g/dL (6.4-8.9); eGFR For African Americans > 60 (> 60); eGFR For Non-African Americans > 60 (> 60)
[2021-01-03] MEDS: Budesonide/Formoterol 160/4.5 1 PUFF INH IH SCH ×2 (07:29→20:24)
[2021-01-03] MEDS: Vitamin B Complex/Vit C/Vit E 1 EACH TABLET PO SCH (10:09)
[2021-01-03] MEDS: Thiamine (B-1) 100 MG TABLET PO SCH (10:09)
[2021-01-03] MEDS: Folic Acid 1 MG TABLET PO SCH (10:09)
[2021-01-03] MEDS: Nicotine 21 MG PATCH.TD24 TD SCH (10:10)
[2021-01-03] MEDS: Lactulose Oral Soln 20 GM/30 ML UDC PO SCH (10:10)
[2021-01-03 10:35] LABS: INR 1.7; Prothrombin Time 19.1 Seconds (9.4-12.1)
[2021-01-03] MEDS: PrednisoLONE Oral Soln 15 MG/5 ML UDC PO SCH (12:02)
[2021-01-04] MEDS: Ipratropium/Albuterol Neb 3 ML IH SCH ×3 (00:10→07:26)
[2021-01-04 02:10] LABS: Eosinophils % 0.4 %; Lymphocytes % 11.8 %
[2021-01-04 02:13] LABS: Basophils # 0.1 K/mcL (0.0-0.2); Basophils % 0.4 %; Eosinophils # 0.1 K/mcL (0.0-0.6); Hematocrit 26.1 % (37.5-50.1); Hemoglobin 9.1 g/dL (12.9-16.9); Immature Granulocytes % 4.2 % (0-4); Immature Platelets 6.6 % (1.1-6.1); Lymphocytes # 1.7 K/mcL (0.6-4.6); Mean Corpuscular HGB Conc 34.9 g/dL (31.6-35.5); Mean Corpuscular Hemoglobin 30.6 pg (28.0-33.3); Mean Corpuscular Volume 87.9 fL (83.0-100.0); Mean Platelet Volume 10.8 fL (9.4-12.4); Monocytes # 1.7 K/mcL (0.0-1.3); Monocytes % 12.4 %; Neutrophils # 9.9 K/mcL (1.6-8.9); Platelet Count 124 K/mcL (140-400); Red Blood Count 2.97 M/mcL (4.19-5.50); Red Cell Distribution Width 21.9 % (11.5-14.5); Segmented Neutrophils % 70.8 %
[2021-01-04 02:21] LABS: Alanine Aminotransferase 29 Units/L (7-52); Albumin 2.3 g/dL (3.5-5.7); Albumin/Globulin Ratio 0.7 (1.1-2.2); Alkaline Phosphatase 102 Units/L (34-104); Aspartate Amino Transferase 90 Units/L (13-39); BUN/Creatinine Ratio 14 (6-26); Bilirubin,Total 10.3 mg/dL (0.3-1.0); Blood Urea Nitrogen 8 mg/dL (8-23); Calcium 7.8 mg/dL (8.6-10.3); Carbon Dioxide 25 mEq/L (23-29); Chloride 101 mEq/L (98-107); Globulin 3.4 g/dL (2.4-3.5); Glucose 107 mg/dL (70-105); Osmolality,Calculated 273 (280-300); Sodium 132 mEq/L (136-145); Total Protein 5.7 g/dL (6.4-8.9); eGFR For African Americans > 60 (> 60); eGFR For Non-African Americans > 60 (> 60)
[2021-01-04 02:22] LABS: INR 1.6; Prothrombin Time 18.3 Seconds (9.4-12.1)
[2021-01-04] MEDS: Budesonide/Formoterol 160/4.5 1 PUFF INH IH SCH ×2 (07:26→20:28)
[2021-01-04] MEDS: Lactulose Oral Soln 20 GM/30 ML UDC PO SCH (07:52)
[2021-01-04] MEDS: PrednisoLONE Oral Soln 15 MG/5 ML UDC PO SCH (07:52)
[2021-01-04] MEDS: Nicotine 21 MG PATCH.TD24 TD SCH (07:52)
[2021-01-04] MEDS: Thiamine (B-1) 100 MG TABLET PO SCH (07:52)
[2021-01-04] MEDS: Folic Acid 1 MG TABLET PO SCH (07:52)
[2021-01-04] MEDS: Vitamin B Complex/Vit C/Vit E 1 EACH TABLET PO SCH (07:52)
[2021-01-04] MEDS ORDERED: Ipratropium/Albuterol Neb 3 ML IH PRN (10:55)
[2021-01-05 05:16] LABS: Basophils % 0.2 %; Eosinophils # 0.1 K/mcL (0.0-0.6); Eosinophils % 0.6 %; Hematocrit 24.2 % (37.5-50.1); Hemoglobin 8.9 g/dL (12.9-16.9); Immature Granulocytes % 3.2 % (0-4); Lymphocytes # 1.5 K/mcL (0.6-4.6); Lymphocytes % 12.7 %; Mean Corpuscular HGB Conc 36.8 g/dL (31.6-35.5); Mean Corpuscular Hemoglobin 32.5 pg (28.0-33.3); Mean Corpuscular Volume 88.3 fL (83.0-100.0); Mean Platelet Volume 11.1 fL (9.4-12.4); Monocytes # 1.8 K/mcL (0.0-1.3); Monocytes % 15.6 %; Neutrophils # 7.7 K/mcL (1.6-8.9); Nucleated Red Blood Cells 0.2 /100 WBC (0); Platelet Count 162 K/mcL (140-400); Red Blood Count 2.74 M/mcL (4.19-5.50); Red Cell Distribution Width 23.7 % (11.5-14.5); Segmented Neutrophils % 67.7 %; White Blood Count 11.4 K/mcL (4.3-11.1)
[2021-01-05 05:22] LABS: INR 1.5; Prothrombin Time 16.5 Seconds (9.4-12.1)
[2021-01-05 05:37] LABS: Alanine Aminotransferase 34 Units/L (7-52); Albumin 2.2 g/dL (3.5-5.7); Albumin/Globulin Ratio 0.7 (1.1-2.2); Alkaline Phosphatase 101 Units/L (34-104); Aspartate Amino Transferase 102 Units/L (13-39); BUN/Creatinine Ratio 17 (6-26); Bilirubin,Total 8.6 mg/dL (0.3-1.0); Blood Urea Nitrogen 9 mg/dL (8-23); Calcium 7.8 mg/dL (8.6-10.3); Carbon Dioxide 27 mEq/L (23-29); Chloride 100 mEq/L (98-107); Globulin 3.2 g/dL (2.4-3.5); Glucose 89 mg/dL (70-105); Osmolality,Calculated 268 (280-300); Potassium 4.1 mEq/L (3.5-5.1); Sodium 130 mEq/L (136-145); Total Protein 5.4 g/dL (6.4-8.9); eGFR For African Americans > 60 (> 60); eGFR For Non-African Americans > 60 (> 60)
[2021-01-05 06:21] LABS: Anisocytosis 3+ (Not Present)
[2021-01-05 06:22] LABS: Hypochromasia Present (Not Present); Platelet Estimate Normal (Normal)
[2021-01-05] MEDS: Budesonide/Formoterol 160/4.5 1 PUFF INH IH SCH ×2 (07:41→20:33)
[2021-01-05] MEDS: Thiamine (B-1) 100 MG TABLET PO SCH (08:50)
[2021-01-05] MEDS: Lactulose Oral Soln 20 GM/30 ML UDC PO SCH (08:50)
[2021-01-05] MEDS: Folic Acid 1 MG TABLET PO SCH (08:50)
[2021-01-05] MEDS: PrednisoLONE Oral Soln 15 MG/5 ML UDC PO SCH (08:50)
[2021-01-05] MEDS: Nicotine 21 MG PATCH.TD24 TD SCH (08:50)
[2021-01-05] MEDS: Vitamin B Complex/Vit C/Vit E 1 EACH TABLET PO SCH (08:50)
[2021-01-06 05:48] LABS: Basophils % 0.2 %; Eosinophils % 0.4 %; Hematocrit 25.6 % (37.5-50.1); Hemoglobin 9.1 g/dL (12.9-16.9); Immature Granulocytes % 3.1 % (0-4); Lymphocytes # 1.2 K/mcL (0.6-4.6); Lymphocytes % 11.3 %; Mean Corpuscular HGB Conc 35.5 g/dL (31.6-35.5); Mean Corpuscular Hemoglobin 32.2 pg (28.0-33.3); Mean Corpuscular Volume 90.5 fL (83.0-100.0); Mean Platelet Volume 10.3 fL (9.4-12.4); Monocytes # 1.7 K/mcL (0.0-1.3); Monocytes % 15.5 %; Neutrophils # 7.5 K/mcL (1.6-8.9); Nucleated Red Blood Cells 0.2 /100 WBC (0); Platelet Count 156 K/mcL (140-400); Red Blood Count 2.83 M/mcL (4.19-5.50); Red Cell Distribution Width 24.4 % (11.5-14.5); Segmented Neutrophils % 69.5 %; White Blood Count 10.8 K/mcL (4.3-11.1)
[2021-01-06 06:09] LABS: Alanine Aminotransferase 43 Units/L (7-52); Albumin 2.2 g/dL (3.5-5.7); Albumin/Globulin Ratio 0.6 (1.1-2.2); Alkaline Phosphatase 105 Units/L (34-104); Aspartate Amino Transferase 113 Units/L (13-39); BUN/Creatinine Ratio 17 (6-26); Bilirubin,Total 8.7 mg/dL (0.3-1.0); Blood Urea Nitrogen 9 mg/dL (8-23); Calcium 7.9 mg/dL (8.6-10.3); Carbon Dioxide 27 mEq/L (23-29); Chloride 101 mEq/L (98-107); Globulin 3.4 g/dL (2.4-3.5); Glucose 104 mg/dL (70-105); Osmolality,Calculated 273 (280-300); Potassium 3.9 mEq/L (3.5-5.1); Sodium 132 mEq/L (136-145); Total Protein 5.6 g/dL (6.4-8.9); eGFR For African Americans > 60 (> 60); eGFR For Non-African Americans > 60 (> 60)
[2021-01-06 06:22] LABS: Anisocytosis 3+ (Not Present); Platelet Estimate Normal (Normal); Poikilocytosis 2+ (Not Present); Target Cells 2+ (Not Present)
[2021-01-06] MEDS ORDERED: Lactulose Oral Soln 20 GM/30 ML UDC PO SCH (09:00)
[2021-01-06] MEDS: Thiamine (B-1) 100 MG TABLET PO SCH (09:48)
[2021-01-06] MEDS: Folic Acid 1 MG TABLET PO SCH (09:48)
[2021-01-06] MEDS: Nicotine 21 MG PATCH.TD24 TD SCH (09:48)
[2021-01-06] MEDS: Vitamin B Complex/Vit C/Vit E 1 EACH TABLET PO SCH (09:48)
[2021-01-06] MEDS: PrednisoLONE Oral Soln 15 MG/5 ML UDC PO SCH (09:49)
[2021-01-06] MEDS: Budesonide/Formoterol 160/4.5 1 PUFF INH IH SCH ×2 (10:46→20:15)
[2021-01-06] MEDS: Furosemide 20 MG TABLET PO SCH (13:10)
[2021-01-07 03:08] LABS: Basophils % 0.1 %; Eosinophils % 0.1 %; Hemoglobin 8.8 g/dL (12.9-16.9); Immature Granulocytes % 1.8 % (0-4); Lymphocytes # 1.1 K/mcL (0.6-4.6); Lymphocytes % 10.1 %; Mean Corpuscular HGB Conc 35.2 g/dL (31.6-35.5); Mean Corpuscular Hemoglobin 32.2 pg (28.0-33.3); Mean Corpuscular Volume 91.6 fL (83.0-100.0); Mean Platelet Volume 10.2 fL (9.4-12.4); Monocytes # 1.3 K/mcL (0.0-1.3); Monocytes % 11.9 %; Neutrophils # 8.2 K/mcL (1.6-8.9); Platelet Count 150 K/mcL (140-400); Red Blood Count 2.73 M/mcL (4.19-5.50); White Blood Count 10.8 K/mcL (4.3-11.1)
[2021-01-07 03:21] LABS: INR 1.3; Prothrombin Time 14.8 Seconds (9.4-12.1)
[2021-01-07 03:24] LABS: Alanine Aminotransferase 50 Units/L (7-52); Albumin 2.2 g/dL (3.5-5.7); Albumin/Globulin Ratio 0.7 (1.1-2.2); Alkaline Phosphatase 102 Units/L (34-104); Aspartate Amino Transferase 120 Units/L (13-39); BUN/Creatinine Ratio 18 (6-26); Bilirubin,Total 8.3 mg/dL (0.3-1.0); Blood Urea Nitrogen 9 mg/dL (8-23); Calcium 7.7 mg/dL (8.6-10.3); Carbon Dioxide 25 mEq/L (23-29); Chloride 101 mEq/L (98-107); Globulin 3.2 g/dL (2.4-3.5); Glucose 112 mg/dL (70-105); Osmolality,Calculated 275 (280-300); Potassium 3.9 mEq/L (3.5-5.1); Sodium 133 mEq/L (136-145); Total Protein 5.4 g/dL (6.4-8.9); eGFR For African Americans > 60 (> 60); eGFR For Non-African Americans > 60 (> 60)
[2021-01-07 04:29] LABS: Anisocytosis 2+ (Not Present); Platelet Estimate Normal (Normal); Target Cells 1+ (Not Present)
[2021-01-07] MEDS: Nicotine 21 MG PATCH.TD24 TD SCH (07:51)
[2021-01-07] MEDS: Vitamin B Complex/Vit C/Vit E 1 EACH TABLET PO SCH (07:51)
[2021-01-07] MEDS: PrednisoLONE Oral Soln 15 MG/5 ML UDC PO SCH (07:51)
[2021-01-07] MEDS: Furosemide 20 MG TABLET PO SCH (07:51)
[2021-01-07] MEDS: Thiamine (B-1) 100 MG TABLET PO SCH (07:51)
[2021-01-07] MEDS: Folic Acid 1 MG TABLET PO SCH (07:51)
[2021-01-07] MEDS: Budesonide/Formoterol 160/4.5 1 PUFF INH IH SCH ×2 (08:08→20:43)
[2021-01-08 06:20] LABS: BUN/Creatinine Ratio 19 (6-26); Blood Urea Nitrogen 10 mg/dL (8-23); Calcium 7.6 mg/dL (8.6-10.3); Carbon Dioxide 29 mEq/L (23-29); Chloride 101 mEq/L (98-107); Glucose 88 mg/dL (70-105); Osmolality,Calculated 276 (280-300); Potassium 3.6 mEq/L (3.5-5.1); Sodium 134 mEq/L (136-145); eGFR For African Americans > 60 (> 60); eGFR For Non-African Americans > 60 (> 60)
[2021-01-08 08:12] LABS: Hemoglobin 9.1 g/dL (12.9-16.9)
[2021-01-08 08:15] LABS: Hematocrit 25.6 % (37.5-50.1); Immature Platelets 6.6 % (1.1-6.1); Mean Corpuscular HGB Conc 35.5 g/dL (31.6-35.5); Mean Corpuscular Hemoglobin 32.2 pg (28.0-33.3); Mean Corpuscular Volume 90.5 fL (83.0-100.0); Mean Platelet Volume 11.7 fL (9.4-12.4); Red Blood Count 2.83 M/mcL (4.19-5.50); White Blood Count 13.2 K/mcL (4.3-11.1)
[2021-01-08] MEDS: Budesonide/Formoterol 160/4.5 1 PUFF INH IH SCH ×2 (08:23→20:23)
[2021-01-08] MEDS: Nicotine 21 MG PATCH.TD24 TD SCH (08:55)
[2021-01-08] MEDS: Folic Acid 1 MG TABLET PO SCH (08:55)
[2021-01-08] MEDS: Vitamin B Complex/Vit C/Vit E 1 EACH TABLET PO SCH (08:55)
[2021-01-08] MEDS: Thiamine (B-1) 100 MG TABLET PO SCH (08:55)
[2021-01-08] MEDS: Furosemide 20 MG TABLET PO SCH (08:55)
[2021-01-08] MEDS: PrednisoLONE Oral Soln 15 MG/5 ML UDC PO SCH (08:56)
[2021-01-08] MEDS ORDERED: Lactulose Oral Soln 20 GM/30 ML UDC PO SCH (09:00)
[2021-01-08] MEDS ORDERED: FLU Vac QV 21-22 (6Month+)/PF 0.5 ML SYRINGE IM ONE (17:44)
[2021-01-08 18:52] LABS: Adenovirus Not Detected (Not Detect); Bordetella Pertussis Not Detected (Not Detect); Chlamydophila pneumoniae Not Detected (Not Detect); Coronavirus 229E Not Detected (Not Detect); Coronavirus HKU1 Not Detected (Not Detect); Coronavirus NL63 Not Detected (Not Detect); Coronavirus OC43 Not Detected (Not Detect); Human Metapneumovirus Not Detected (Not Detect); Human Rhinovirus/Enterovirus Not Detected (Not Detect); Influenza A Subtype 2009 H1 Not Detected (Not Detect); Influenza B Not Detected (Not Detect); Mycoplasma pneumoniae Not Detected (Not Detect); Parainfluenza Virus 1 Not Detected (Not Detect); Parainfluenza Virus 2 Not Detected (Not Detect); Parainfluenza Virus 3 Not Detected (Not Detect); Parainfluenza Virus 4 Not Detected (Not Detect); Respiratory Syncytial Virus Not Detected (Not Detect); SARS-CoV-2 Not Detected (Not Detect)
[2021-01-08 19:44] VITALS: BP 99/59; PULSE 88; TEMP 97.6; O2SAT 94
== END 2021-01-08 21:30 | disposition other institution (70) | DRG 432 ==
LOC: EMEROOARM 09:33 → 2NENU 09:33 → SUATTDRO 17:14 → 2NENU 18:41 → SUATTDRO 12-30 18:45
PROVIDERS: ADMIT Internal Medicine; ATTEND Internal Medicine